=== PATIENT | female | born 1940 | race Two or more races ===

== ENCOUNTER 2024-08-21 19:19 | Emergency (ER) | payer MEDICARE, OTHER, SELFPAY ==
[2024-08-21 19:20] VITALS: BMI 20.7
[2024-08-21 19:50] VITALS: BP 155/79; PULSE 82; RESP 16; TEMP 37.5; O2SAT 96
--- NOTE | 2024-08-21 20:06 | XR_ITS ---
Examination: AP chest single view Technique: AP upright portable chest single view Exam date and time: August 21, 2024 2012 hrs. Comparison November 29, 2018 Indications: Patient fell today with weakness Findings: Mild prominence cardiac contour Moderate vascular congestion Suspicious for septal edema perihilar left lung bases No lobar pneumonia Impression: Suspicious for early heart failure
--- NOTE | 2024-08-21 20:06 | XR_ITS ---
Examination: CT brain head without contrast. 2-D sagittal coronal reconstructions Date and time of exam:August 21, 20242012 hrs. Indications: Onset weakness today head pain headache CTDI: vol (mGy):44.8 DLP: (mGycm):918 Technique: Multiple CT axial sections of the brain have been obtained, 5 mm slice thickness. Contrast has not been administered. 2-D sagittal, coronal reconstructions have been obtained Low dose protocols were performed. One or more of the following dose reduction techniques were used; automated exposure control, adjustment of the mA and/or KV according to patient size, use of iterative reconstruction technique. Findings: No significant ventricular enlargement. Intra-axial or extra-axial hemorrhage density is not seen. No mass effect or midline shift Basal cisterns are not remarkable. Fourth ventricle is midline. Cranial vault intact. Impression: Negative for acute hemorrhage, mass effect or midline shift
--- NOTE | 2024-08-21 20:06 | XR_ITS ---
Examination: CT cervical spine without contrast 2-D sagittal reconstructions 2-D coronal reconstructions 3-D reconstructions. Exam date and time:August 21, 20242012 hrs. CTDI:vol (mGy) 7.17 DLP: (mGycm) 155 Technique: Multiple 2 mm axial sections of the cervical spine have been obtained. The coronal and sagittal reconstructions have been obtained. 3-D reconstructions have been obtained. Low dose protocols were performed. One or more of the following dose reduction techniques were used; automated exposure control, adjustment of the mA and/or KV according to patient size, use of iterative reconstruction technique. Findings: Axial sections demonstrate intact base of the skull. C1 exhibit satisfactory relationship to the odontoid. No acute cervical vertebral body fracture seen. Alignment posterior spinous processes satisfactory. Impression: No acute cervical fracture.
--- NOTE | 2024-08-21 20:07 | EDRME_ITS ---
Rapid Medical Screening Exam [facility] Arrival date/time: 08/21/24 19:19 83F with history of dementia presents to ED with son for increased generalized weakness and 3 unwitnessed falls (possibly due to imbalance). Son thinks symptoms started last night. Chief Complaint: Fall Time Seen by Provider: 08/21/24 19:49 Vital signs: Vital Signs Temperature 99.5 F 08/21/24 19:50 Pulse Rate 82 08/21/24 19:50 Respiratory Rate 16 08/21/24 19:50 Blood Pressure 155/79 H 08/21/24 19:50 Pulse Oximetry (%) 96 08/21/24 19:50 Oxygen Delivery Method Room Air 08/21/24 19:50
[2024-08-21 20:44] LABS: Basophils % (Auto) 0 % (0-2.5); Eosinophils % (Auto) 0 % (0-10); Hematocrit 37.7 % (36.0-46.0); Hemoglobin 12.4 g/dL (12.0-16.0); Immature Granulocytes % (Auto) 0 % (0-0); Immature Granulocytes Auto 0.05 Thou/mm3 (0.00-0.00); Lymphocytes % (Auto) 8 % (10-50); Mean Corpuscular HGB Conc 32.9 g/dl (31.0-37.0); Mean Corpuscular Hemoglobin 29.9 pg (25.0-35.0); Mean Corpuscular Volume 91 fL (80-100); Monocytes # (Auto) 0.9 Thou/mm3 (0.0-0.8); Monocytes % (Auto) 8 % (0-12); Neutrophils # (Auto) 9.9 Thou/mm3 (1.8-7.7); Neutrophils % (Auto) 83 % (37-80); Nucleated Red Blood Cell % 0 /100 WBC (0); Platelet Count 236 Thou/mm3 (140-440); RDW Standard Deviation 42.2 fL (36.4-46.3); Red Blood Count 4.15 Miln/mm3 (4.00-5.20); White Blood Count 11.8 Thou/mm3 (3.6-11.0)
[2024-08-21 21:11] LABS: Alanine Aminotransferase 13 U/L (10-49); Albumin, Serum 5.1 gm/dL (3.4-4.8); Albumin/Globulin Ratio 1.7 (1.2-2.2); Alkaline Phosphatase 138 U/L (46-116); Anion Gap 10 (7-16); Aspartate Amino Transferase 28 U/L (0-34); BUN/Creatinine Ratio 16 Ratio (12-20); Bilirubin,Total 0.7 mg/dL (0.3-1.2); Blood Urea Nitrogen 13 mg/dL (9-23); Calcium 9.6 mg/dL (8.3-10.6); Calcium (Corrected) 9.6 mg/dL (8.5-10.1); Carbon Dioxide 25.9 mMol/L (20.0-31.0); Chloride 102 mMol/L (98-107); Creatine Kinase 443 U/L (34-171); Creatinine (Component) 0.8 mg/dL (0.6-1.3); Estimated Creatinine Clearance 47.7 mL/min (>60); Glucose 123 mg/dL (74-106); Osmolality,Calculated 276 (275-295); Potassium 3.3 mMol/L (3.4-5.1); Sodium 138 mMol/L (136-145); Total Protein 8.1 gm/dL (5.7-8.2); eGFR > 60 See Note
[2024-08-21 21:16] LABS: Collection Type, Urine Clean Catch
[2024-08-21 21:24] LABS: Troponin I < 0.020 ng/mL (0.0-0.045)
[2024-08-21 21:25] LABS: Bacteria,Urine 2+; Bilirubin,Urine Negative (Negative); Blood,Urine 2+ (Negative); Clarity,Urine Turbid (Clear/Hazy); Color,Urine Yellow (Lt Yel-Yel); Glucose, Urine Negative (Negative); Ketones,Urine 1+ (Negative); Leukocyte Esterase,Urine Positive (Negative); Nitrite,Urine Positive (Negative); Protein,Urine 1+ (Neg - Trace); RBC,Urine 22 /hpf (0-3); Specific Gravity,Urine 1.017 (1.001-1.035); Squamous Epithelial Cell,Urine 9 /hpf (0-5); Urobilinogen,Urine Negative mg/dL (0.0-1.0); WBC,Urine 707 /hpf (0-5)
[2024-08-21 21:26] LABS: Partial Thromboplastin Time 28.3 Seconds (22.0-36.0); Prothrombin Time 11.4 Seconds (9.0-12.2)
[2024-08-21 21:27] LABS: Culture Indicated,Urine Yes
--- NOTE | 2024-08-21 22:35 | PD.EDFALL ---
ED Fall Injury RME/HPI General Chief Complaint: Fall Stated Complaint: GENREAL WEAKNESS AND FALLS Time Seen by Provider: 08/21/24 19:49 Arrival date/time: 08/21/24 19:19 RME / HPI RME / HPI Narrative: 83-year-old female patient with significant history of dementia, was brought in by his son who is visiting from [place], came in for evaluation regarding possible unwitnessed fall due to imbalance at least 3 times for several days now. Currently patient is denying any complaints. Denies any fever. Denies any dysuria denies any chest pain, back pain, neck pain. Related Data Home Medications ?Medication ?Instructions ?Recorded ?Confirmed atorvastatin 10 mg tablet (Lipitor) 10 mg PO QDAY 11/29/18 11/29/18 donepezil 5 mg tablet (Aricept) 5 mg PO QDAY 11/29/18 11/29/18 fexofenadine 180 mg tablet 180 mg PO Q24H 11/29/18 11/29/18 (Yanet Allergy) gabapentin 100 mg capsule 100 mg PO QDAY 11/29/18 11/29/18 montelukast 10 mg tablet 10 mg PO QPM 11/29/18 11/29/18 (Singulair) [id number] 8 mg-folic 400 1 tab PO QDAY 11/29/18 11/29/18 mcg-K 50 mcg-lutein 300 mcg tablet (Centrum Silver Women) ropinirole 1 mg tablet (Requip) 1 mg PO BID 11/29/18 11/29/18 Previous Rx's ?Medication ?Instructions ?Recorded cefuroxime axetil 500 mg tablet 500 mg PO BID #14 tabs 08/21/24 Allergies Allergy/AdvReac Type Severity Reaction Status Date / Time codeine Allergy Unknown Verified 12/02/18 08:51 Review of Systems Review of Systems Narrative Review of Systems: Review of system reviewed and within normal limits except mentioned in HPI ED Exam Narrative Physical exam: VITAL SIGNS: Reviewed. GENERAL APPEARANCE: Alert and interactive, follows commands, no acute distress, HEAD AND FACE: Non-traumatic. ENT: PERRL, pink conjunctivitis, eyelid no trauma, Mucous membrane moist. NECK: Supple, nontender, no nuchal rigidity. CHEST: No tenderness, no crepitus, no paradoxical movement, no retractions. LUNGS: Clear, well ventilated, symmetric, no rales, no wheezing, no ronchi, no stridor, good breath sounds bilaterally. HEART: Regular rate, regular rhythm, no murmur, no gallops. ABDOMEN: Soft, positive bowel sounds, nondistended, no guarding, nontender, no rebound, no masses, RECTAL: Deferred. GENITAL: Deferred. NEUROLOGICAL: Gross motor function intact sensory function intact, Appropriate for age. MUSCULOSKELETAL: low back nontender, full range of motion. EXTREMITIES: Nontender, full range of motion. SKIN: Color pink, dry, no rash, no lacerations, no abrasions, no contusions. LYMPHATICS: Deferred. Course Quality Measures none Orders Category Date Time Status Blood glucose [Bedside Blood Glucose] NOW Care 08/21/24 19:41 Completed EKG (ED ONLY) *Do not use* NOW Care 08/21/24 19:[address] cervical spine wo con Stat Exams 08/21/24 20:[address] head/brain wo con Stat Exams 08/21/24 20:06 Completed EKG (ED Only) Stat Exams 08/21/24 19:41 Ordered XR chest 1V portable Stat Exams 08/21/24 20:06 Completed CBC Stat Lab 08/21/24 20:30 Completed Comprehensive Metabolic Panel Stat Lab 08/21/24 20:30 Completed Creatine Kinase Stat Lab 08/21/24 20:30 Completed Partial Thromboplastin Time Stat Lab 08/21/24 20:30 Completed Prothrombin Time with INR Stat Lab 08/21/24 20:30 Completed Troponin I Stat Lab 08/21/24 20:30 Completed Urinalysis, C/S if Indicated Stat Lab 08/21/24 21:08 Completed Urine Culture Stat Lab 08/21/24 21:08 Received cefTRIAXone [Rocephin] 1,000 mg Med 08/21/24 22:31 Discontinued Lidocaine 1% 20 ml [Xylocaine 1% 20 ML] 2.1 ml IM X1 Vital Signs Vital signs: Vital Signs Temperature 99.5 F 08/21/24 19:50 Pulse Rate 82 08/21/24 19:50 Respiratory Rate 16 08/21/24 19:50 Blood Pressure 155/79 H 08/21/24 19:50 Pulse Oximetry (%) 96 08/21/24 19:50 Oxygen Delivery Method Room Air 08/21/24 19:50 Fall MDM Narrative MDM Narrative:: 83-year-old female patient with significant history of dementia, was brought in by his son who is visiting from [place], came in for evaluation regarding possible unwitnessed fall due to imbalance at least 3 times for several days now. Currently patient is denying any complaints. Denies any fever. Denies any dysuria denies any chest pain, back pain, neck pain. Laboratory workup significant for UTI CT scan of the head came back unremarkable. CT scan of the neck came back unremarkable. Results discussed with the patient and her son. Patient was given ceftriaxone IM. Patient data External records reviewed:: None Clinical information provided by:: none Social determinants that could affect healthcare access:: none Patient has the following chronic illnesses:: Dementia How is presenting disease/condition affected by chronic disease/condition?: exacerbated by Evaluation data The following diagnostics were reviewed and interpreted by me:: lab results and radiology exam(s) Lab and/or radiology exams considered but not ordered:: None Interpretation Summary: Laboratory workup significant for UTI. CT scan of the head came back unremarkable CT scan of the neck came back unremarkable. Medications / Prescriptions Medications or Prescriptions considered but not ordered:: None Medication administrations:: Medication Administration History Discontinued Medications Ceftriaxone Sodium 1,000 mg/ (Lidocaine HCl 2.1 ml) 0 mg IM X1 ONE Stop: 08/21/24 22:32 Ceftriaxone IM Consultations Consultation(s) initiated? (list below): No Diagnosis Fall Differential Diagnosis: other (UTI, frequent falls, dementia) Most likely diagnosis given after review of the tests above:: UTI, frequent falls Admission Indicated Admission indicated?: not indicated Explain why admission is indicated or not indicated:: Stable Admission Request Was there a request for admission?: No Disposition Plan Disposition Plan: Discharge Discharge Attestation Discharge Attestation: The patient and all family members were given an opportunity to ask questions and understood the discharge instructions. Discharge instructions specifically effects, indications for sooner follow up or return to the emergency department, and the expected course of current diagnosis. Patient condition: Stable Discharge Plan Plan Patient Disposition: HOME (Self Care) Disposition Comment: Stable Prescriptions/Referrals Prescriptions/Med Rec: New cefuroxime axetil 500 mg tablet 500 mg PO BID Qty: 14 0RF No Action ropinirole [Requip] 1 mg Tablet 1 mg PO BID donepezil [Aricept] 5 mg Tablet 5 mg PO QDAY atorvastatin [Lipitor] 10 mg Tablet 10 mg PO QDAY fexofenadine [Yanet Allergy] 180 mg Tablet 180 mg PO Q24H montelukast [Singulair] 10 mg Tablet 10 mg PO QPM gabapentin 100 mg Capsule 100 mg PO QDAY Centrum Silver Women 8 mg iron-400 mcg-300 mcg Tablet 1 tab PO QDAY Referrals: Temporary Provider,ED [Primary Care Provider] - In 1 week Problem List Clinical Impression: UTI (urinary tract infection), Fall Patient/Caregiver Discharge Instructions Discharge Activity: activity as tolerated Education Materials: Understanding Urinary Tract ... Additional Instructions: Thank you for the opportunity for serving you today. You are stable for discharged . 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 FERRO
[2024-08-21] MEDS: cefTRIAXone 1,000 MG, LIDOCAINE 1% 20 ML 2.1 ML IM (22:53)
== END 2024-08-21 23:04 | disposition home or self-care (01) ==
PROVIDERS: Physician Assistant; Emergency Provider Emergency Medicine
DX: N39.0 Urinary tract infection, site not specified (principal); R53.1 Weakness; R51.9 Headache, unspecified; F03.90 Unspecified dementia, unspecified severity, without behavioral disturbance, psychotic disturbance, mood disturbance, and anxiety; R94.31 Abnormal electrocardiogram [ECG] [EKG]; W19.XXXA Unspecified fall, initial encounter
CPT/HCPCS: 36415; 70450; 71045; 72125; 80053; 81001; 82550; 84484; 85025; 85610; 85730; 87077; 87086; 87186; 93005; 96372; 99284; J0696; J3490

== ENCOUNTER 2024-10-20 13:09 | Emergency (ER) | payer MEDICARE, OTHER, SELFPAY ==
[2024-10-20 13:16] VITALS: PULSE 62; RESP 16; O2SAT 98
--- NOTE | 2024-10-20 13:17 | EKG_ITS ---
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
--- NOTE | 2024-10-20 13:17 | XR_ITS ---
Examination: AP chest single view TECHNIQUE: AP portable sitting chest single view Exam date and time: October 20, 2024 1444 hours INDICATIONS: Shortness of breath today. FINDINGS: Normal heart size Mild vascular congestion No lobar pneumonia Prominent osteopenia IMPRESSION: Mild vascular congestion
[2024-10-20 13:19] VITALS: BP 200/83; PULSE 59; RESP 15; TEMP 36.4; O2SAT 98
--- NOTE | 2024-10-20 13:30 | EDNOTE_ITS ---
Nausea/Vomit./Diarrhea-RME/HPI General Chief complaint: Nausea/Vomiting/Diarrhea Stated complaint: N/V Time Seen by Provider: 10/20/24 13:14 Arrival date/time: 10/20/24 13:09 RME / HPI RME / HPI Narrative: This section includes all my notes and documentations, including HPI, PE, and ED course.? 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 Per medics, patient had two episodes, nonbloody, witnessed by them. Was given 4mg PO Zofran with no subsequent episodes. Medics reports blood pressure was 168/92 and all other vitals stable. While in the ED patient has no other complaints. ROS: All negative except as documented in HPI. Physical Exam: General:? Alert and oriented X 1.? No acute distress when remaining still.?? Eyes:? Conjunctivae and lids clear.? ENT:? No nasal congestion.? Neck:? Supple.? Heart:? RRR.? Lungs:? No respiratory distress.? Good air movement.? No rhonchi, wheezing, rales.?? Abdomen:? Soft and nontender.?? Legs:? No clubbing, cyanosis, edema.? Skin:? Warm and dry.?? Neuro:? Alert, awake.?? I reviewed all diagnostic test results. My interpretation of the EKG is?sinus rhythm (65 bpm) with PACs and nonspecific ST-T changes. My interpretation of the chest x-ray is no acute findings. Blood tests and urine tests?unremarkable, except K 3.2. At this point, diagnoses include?gastroenteritis. Treatment here included Zofran and IV fluid and Reglan and KCl. Significant improvement noted. Recommended supportive care. Based on my best medical judgment, made decision no further evaluation or treatment indicated at this time.? POSu understands and agrees to the discharge instructions customized and printed, see below. Discharge Instructions from Dr. Smart: 1. After evaluation, you have stomach flu.? See attached handout on gastroenteritis. 2. This is caused by virus germs.? And we do not have good medications to kill the virus germs.? But your immune system will fight it off. 3. Your job is to stay hydrated.? Zofran for nausea/vomiting.? Increase oral fluid and maintain clear urine.? If dark or yellow, increase oral fluid. 4. Do not take any medications to stop your diarrhea.? But try to replenish the fluid and electrolytes you are losing. 5. Some good choices are water (but not only water because it will cause electrolyte abnormalities), sports drinks like Gatorade (with less sugar content), coconut water, chicken stock, and other fluid with electrolytes (like Pedialyte). 6. See your private doctor on 10/23/2024 if not completely better. 7. Seek immediate medical care with worsening or with any concerns. Abe Smart MD Related Data Home Medications ?Medication ?Instructions ?Recorded ?Confirmed atorvastatin 10 mg tablet (Lipitor) 10 mg PO QDAY 11/29/18 11/29/18 donepezil 5 mg tablet (Aricept) 5 mg PO QDAY 11/29/18 11/29/18 fexofenadine 180 mg tablet 180 mg PO Q24H 11/29/18 11/29/18 (Yanet Allergy) gabapentin 100 mg capsule 100 mg PO QDAY 11/29/18 11/29/18 montelukast 10 mg tablet 10 mg PO QPM 11/29/18 11/29/18 (Singulair) [id number] 8 mg-folic 400 1 tab PO QDAY 11/29/18 11/29/18 mcg-K 50 mcg-lutein 300 mcg tablet (Centrum Silver Women) ropinirole 1 mg tablet (Requip) 1 mg PO BID 11/29/18 11/29/18 Previous Rx's ?Medication ?Instructions ?Recorded cefuroxime axetil 500 mg tablet 500 mg PO BID #14 tabs 08/21/24 ondansetron 4 mg disintegrating 4 mg PO TID PRN nausea and 10/20/24 tablet vomiting 5 days #10 tabs Allergies Allergy/AdvReac Type Severity Reaction Status Date / Time codeine Allergy Unknown Verified 12/02/18 08:51 Review of Systems Review of Systems Systems Reviewed: All systems reviewed, normal except as documented Past Medical History Past Medical History CARDIAC: Positive Cardiac Disorders and Hypercholesterolemia (TAKES MED) REPRODUCTIVE: Positive Previous Pregnancies (X4) OTHER HISTORY: Positive Mumps Family History FAMILY HISTORY: Positive Family Cardiac Disorders (BROTHER (HEART TRANSPLANT)) Social History SMOKING STATUS: Never smoker ED Exam Narrative Physical exam: As noted in HPI Course Quality Measures none Orders Category Date Time Status Bedside COVID-19 Antigen Test NOW Care 10/20/24 13:17 Active Bedside Influenza A&B Antigen Test NOW Care 10/20/24 13:17 Completed EKG (ED ONLY) *Do not use* NOW Care 10/20/24 13:17 Completed EKG (ED Only) Stat Exams 10/20/24 13:17 Draft XR chest 1V portable Stat Exams 10/20/24 13:17 Completed Amylase Stat Lab 10/20/24 13:28 Completed CBC Stat Lab 10/20/24 13:28 Completed CMP [Comprehensive Metabolic Panel] Stat Lab 10/20/24 13:28 Completed Lipase Stat Lab 10/20/24 13:28 Completed Magnesium Stat Lab 10/20/24 13:28 Completed Troponin I Stat Lab 10/20/24 13:28 Completed UA, C/S IF [Urinalysis, C/S if Indicated] Stat Lab 10/20/24 12:58 Completed KCL 10% Liq UDC 15 ML Med 10/20/24 14:24 Discontinued 40 meq PO X1 ONE Metoclopramide Inj [Reglan Inj] Med 10/20/24 13:16 Discontinued 10 mg IVP X1 ONE Sodium Chloride 0.9% 1000 ml [Ns] 1,000 ml Med 10/20/24 13:16 Discontinued IV 999 mls/hr Vital Signs Vital signs: Vital Signs Temperature 97.5 F 10/20/24 13:19 Pulse Rate 59 L 10/20/24 13:19 Respiratory Rate 15 10/20/24 13:19 Blood Pressure 200/83 H 10/20/24 13:19 Pulse Oximetry (%) 98 10/20/24 13:19 Oxygen Delivery Method Room Air 10/20/24 13:19 Pulse ox is 98% on room air which is adequate. Nausea/Vomiting/Diarrhea MDM Narrative MDM Narrative:: Lissy Jacobs am scribing for and in the presence of Dr. Smart. Patient data External records reviewed:: [facility] previous records (I reviewed ED visit on 08/21/2024) and EMS form Clinical information provided by:: patient and EMS Social determinants that could affect healthcare access:: none Patient has the following chronic illnesses:: dementia, hyperlipidemia How is presenting disease/condition affected by chronic disease/condition?: uneffected by Evaluation data The following diagnostics were reviewed and interpreted by me:: lab results, radiology exam(s) and EKG tracing(s) (My interpretation of the EKG is: Sinus rhythm (65 bpm) with PACs and nonspecific ST-T changes. Abe Smart MD) Lab and/or radiology exams considered but not ordered:: None Interpretation Summary: Gastroenteritis Medications / Prescriptions Medications / Prescriptions considered but not ordered:: None Medication administrations:: Medication Administration History Discontinued Medications Sodium Chloride (Ns) 1,000 mls @ 999 mls/hr IV .Q1H1M ONE Stop: 10/20/24 14:16 Last Admin: 10/20/24 14:32 Dose: 999 mls/hr Documented By: SUKHI Metoclopramide HCl (Metoclopramide Inj 5 Mg/Ml Vial 2 Ml) 10 mg IVP X1 ONE; Protocol Stop: 10/20/24 13:17 Last Admin: 10/20/24 14:31 Dose: 10 mg Documented By: SUKHI Potassium Chloride (Potassium Chloride 10% 20 Meq/15 Ml Udc) 40 meq PO X1 ONE Stop: 10/20/24 14:25 Last Admin: 10/20/24 15:25 Dose: 40 meq Documented By: SUKHI Patient given IV fluids, reglan, and potassium Consultations Consultation(s) initiated? (list below): No Diagnosis Nausea Differential Diagnosis: traveler's diarrhea, food poisoning, gastroenteritis, drug-induced nausea and vomiting and dehydration Most likely diagnosis given after review of the tests above:: Gastroenteritis Admission Indicated Admission indicated?: not indicated Explain why admission is indicated or not indicated:: Admission criteria not met Admission Request Was there a request for admission?: No Disposition Plan Disposition Plan: Discharge Discharge Attestation Discharge Attestation: The patient and all family members were given an opportunity to ask questions and understood the discharge instructions. Discharge instructions specifically effects, indications for sooner follow up or return to the emergency department, and the expected course of current diagnosis. Patient condition: Stable Discharge Plan Plan Patient Disposition: HOME (Self Care) Prescriptions/Referrals Prescriptions/Med Rec: New ondansetron 4 mg tablet,disintegrating 4 mg PO TID PRN (Reason: nausea and vomiting) 5 Days Qty: 10 0RF No Action ropinirole [Requip] 1 mg Tablet 1 mg PO BID donepezil [Aricept] 5 mg Tablet 5 mg PO QDAY atorvastatin [Lipitor] 10 mg Tablet 10 mg PO QDAY fexofenadine [Yanet Allergy] 180 mg Tablet 180 mg PO Q24H montelukast [Singulair] 10 mg Tablet 10 mg PO QPM gabapentin 100 mg Capsule 100 mg PO QDAY Centrum Silver Women 8 mg iron-400 mcg-300 mcg Tablet 1 tab PO QDAY cefuroxime axetil 500 mg tablet 500 mg PO BID Qty: 14 0RF Referrals: No Primary/Family,Physician [Primary Care Provider] - In 1 week Problem List Clinical Impression: Stomach flu Patient/Caregiver Discharge Instructions Education Materials: ED Gastroenteritis, Viral (Adult) Additional Instructions: Discharge Instructions from Dr. Smart: 1. After evaluation, you have stomach flu.? See attached handout on g astroenteritis. 2. This is caused by virus germs.? And we do not have good medications to kill the virus germs.? But your immune system will fight it off. 3. Your job is to stay hydrated.? Zofran for nausea/vomiting.? Increase oral fluid and maintain clear urine.? If dark or yellow, increase oral fluid. 4. Do not take any medications to stop your diarrhea.? But try to replenish the fluid and electrolytes you are losing. 5. Some good choices are water (but not only water because it will cause electrolyte abnormalities), sports drinks like Gatorade (with less sugar content), coconut water, chicken stock, and other fluid with electrolytes (like Pedialyte). 6. See your private doctor on 10/23/2024 if not completely better. 7. Seek immediate medical care with worsening or with any concerns. Print Language: Guinean Stand Alone Forms: Shannon Award Info., Patient Portal Info Letter
[2024-10-20 13:45] LABS: Basophils % (Auto) 0 % (0-2.5); Eosinophils # (Auto) 0.1 Thou/mm3 (0.0-0.5); Eosinophils % (Auto) 1 % (0-10); Hematocrit 34.8 % (36.0-46.0); Hemoglobin 11.6 g/dL (12.0-16.0); Immature Granulocytes % (Auto) 0 % (0-0); Immature Granulocytes Auto 0.02 Thou/mm3 (0.00-0.00); Lymphocytes # (Auto) 1.7 Thou/mm3 (1.0-4.8); Lymphocytes % (Auto) 17 % (10-50); Mean Corpuscular HGB Conc 33.3 g/dl (31.0-37.0); Mean Corpuscular Hemoglobin 29.7 pg (25.0-35.0); Mean Corpuscular Volume 89 fL (80-100); Monocytes # (Auto) 0.5 Thou/mm3 (0.0-0.8); Monocytes % (Auto) 5 % (0-12); Neutrophils % (Auto) 78 % (37-80); Nucleated Red Blood Cell % 0 /100 WBC (0); Platelet Count 269 Thou/mm3 (140-440); Red Blood Count 3.91 Miln/mm3 (4.00-5.20); White Blood Count 10.3 Thou/mm3 (3.6-11.0)
[2024-10-20 14:08] LABS: Alanine Aminotransferase 12 U/L (10-49); Albumin, Serum 4.4 gm/dL (3.4-4.8); Albumin/Globulin Ratio 1.5 (1.2-2.2); Alkaline Phosphatase 179 U/L (46-116); Amylase 69 U/L (30-118); Anion Gap 10 (7-16); Aspartate Amino Transferase 16 U/L (0-34); BUN/Creatinine Ratio 23 Ratio (12-20); Bilirubin,Total 0.3 mg/dL (0.3-1.2); Blood Urea Nitrogen 16 mg/dL (9-23); Carbon Dioxide 25.3 mMol/L (20.0-31.0); Chloride 105 mMol/L (98-107); Creatinine (Component) 0.7 mg/dL (0.6-1.3); Globulin 2.9 gm/dL (2.3-3.5); Glucose 142 mg/dL (74-106); Lipase 32 U/L (12-53); Magnesium 1.9 mg/dL (1.6-2.6); Osmolality,Calculated 282 (275-295); Potassium 3.2 mMol/L (3.4-5.1); Sodium 140 mMol/L (136-145); Total Protein 7.3 gm/dL (5.7-8.2); Troponin I < 0.020 ng/mL (0.0-0.045); eGFR > 60 See Note
[2024-10-20 14:09] VITALS: BMI 21.7
[2024-10-20] MEDS: METOCLOPRAMIDE INJ 5 MG/ML VIAL 2 ML 10 MG IVP (14:31)
[2024-10-20] MEDS: SODIUM CHLORIDE 0.9% 1000 ML 1,000 ML 999 ML IV (14:32)
[2024-10-20 14:53] VITALS: BP 178/88; PULSE 72; RESP 20; O2SAT 98
[2024-10-20] MEDS: POTASSIUM CHLORIDE 10% 20 MEQ/15 ML UDC 40 MEQ PO (15:25)
[2024-10-20 15:42] LABS: Collection Type, Urine Clean Catch; Squamous Epithelial Cell,Urine 0 /hpf (0-5)
[2024-10-20 16:00] LABS: Bilirubin,Urine Negative (Negative); Blood,Urine Negative (Negative); Clarity,Urine Clear (Clear/Hazy); Color,Urine Lt-Yellow (Lt Yel-Yel); Culture Indicated,Urine Not Indicated; Glucose, Urine Negative (Negative); Hyaline Casts,Urine < 1 /hpf (0-1); Ketones,Urine Negative (Negative); Leukocyte Esterase,Urine Negative (Negative); Nitrite,Urine Negative (Negative); Protein,Urine Negative (Neg - Trace); RBC,Urine 1 /hpf (0-3); Specific Gravity,Urine 1.016 (1.001-1.035); Urobilinogen,Urine Negative mg/dL (0.0-1.0); WBC,Urine 2 /hpf (0-5)
[2024-10-20 16:50] VITALS: BP 132/81; PULSE 98; RESP 17; TEMP 36.8; O2SAT 98
== END 2024-10-20 18:10 | disposition home or self-care (01) ==
PROVIDERS: Emergency Provider Emergency Medicine
DX: A08.4 Viral intestinal infection, unspecified (principal); R06.02 Shortness of breath; I49.1 Atrial premature depolarization; E78.00 Pure hypercholesterolemia, unspecified
CPT/HCPCS: 36415; 71045; 80053; 81001; 82150; 83690; 83735; 84484; 85025; 87400; 87811; 93005; 96361; 96374; 99284; J2765; J7030; A9270

== ENCOUNTER → 2025-03-04 | Outpatient (CLI) | payer MEDICARE, OTHER, SELFPAY ==
[2025-03-04 14:19] LABS: Collection Type, Urine Clean Catch
[2025-03-04 15:11] LABS: Bilirubin,Urine Negative (Negative); Blood,Urine Negative (Negative); Clarity,Urine Clear (Clear/Hazy); Color,Urine Yellow (Lt Yel-Yel); Glucose, Urine Negative (Negative); Ketones,Urine Trace (Negative); Leukocyte Esterase,Urine Positive (Negative); Nitrite,Urine Negative (Negative); PH,Urine 6.5 (5.0-7.0); Protein,Urine Trace (Neg - Trace); RBC,Urine 5 /hpf (0-3); Specific Gravity,Urine 1.028 (1.001-1.035); Squamous Epithelial Cell,Urine 2 /hpf (0-5); Urobilinogen,Urine Negative mg/dL (0.0-1.0); WBC,Urine 4 /hpf (0-5)
== END | disposition home or self-care (01) ==
LOC: SLDO 14:12
PROVIDERS: PCP Family Medicine; Referring Provider Family Medicine; Visit Provider Family Medicine
DX: N30.00 Acute cystitis without hematuria (principal)
CPT/HCPCS: 81001; 87086

== ENCOUNTER → 2025-03-05 | Outpatient (CLI) | payer MEDICARE, OTHER, SELFPAY ==
[2025-03-05 16:21] LABS: Basophils # (Auto) 0.1 Thou/mm3 (0.0-0.2); Basophils % (Auto) 1 % (0-2.5); Eosinophils # (Auto) 0.1 Thou/mm3 (0.0-0.5); Eosinophils % (Auto) 1 % (0-10); Hematocrit 36.5 % (36.0-46.0); Hemoglobin 12.3 g/dL (12.0-16.0); Immature Granulocytes % (Auto) 0 % (0-0); Immature Granulocytes Auto 0.01 Thou/mm3 (0.00-0.00); Lymphocytes # (Auto) 1.4 Thou/mm3 (1.0-4.8); Lymphocytes % (Auto) 18 % (10-50); Mean Corpuscular HGB Conc 33.7 g/dl (31.0-37.0); Mean Corpuscular Hemoglobin 29.4 pg (25.0-35.0); Mean Corpuscular Volume 87 fL (80-100); Monocytes # (Auto) 0.6 Thou/mm3 (0.0-0.8); Monocytes % (Auto) 8 % (0-12); Neutrophils # (Auto) 5.8 Thou/mm3 (1.8-7.7); Neutrophils % (Auto) 73 % (37-80); Nucleated Red Blood Cell % 0 /100 WBC (0); Platelet Count 309 Thou/mm3 (140-440); RDW Standard Deviation 45.3 fL (36.4-46.3); Red Blood Count 4.19 Miln/mm3 (4.00-5.20)
[2025-03-05 16:49] LABS: Alanine Aminotransferase 13 U/L (10-49); Albumin, Serum 4.4 gm/dL (3.4-4.8); Albumin/Globulin Ratio 1.6 (1.2-2.2); Alkaline Phosphatase 115 U/L (46-116); Anion Gap 8 (7-16); Aspartate Amino Transferase 22 U/L (0-34); BUN/Creatinine Ratio 25 Ratio (12-20); Bilirubin,Total 0.4 mg/dL (0.3-1.2); Blood Urea Nitrogen 20 mg/dL (9-23); Calcium 9.2 mg/dL (8.3-10.6); Calcium (Corrected) 9.2 mg/dL (8.5-10.1); Carbon Dioxide 27.7 mMol/L (20.0-31.0); Chloride 106 mMol/L (98-107); Creatinine (Component) 0.8 mg/dL (0.6-1.3); Globulin 2.8 gm/dL (2.3-3.5); Glucose 91 mg/dL (74-106); Osmolality,Calculated 285 (275-295); Potassium 3.9 mMol/L (3.4-5.1); Sodium 142 mMol/L (136-145); Thyroid Stimulating Hormone 5.11 uIU/mL (0.55-4.78); Total Protein 7.2 gm/dL (5.7-8.2); eGFR > 60 See Note
[2025-03-05 16:55] LABS: Vitamin B12 256 pg/mL (211-911)
== END | disposition home or self-care (01) ==
LOC: COPL 14:55
PROVIDERS: PCP Family Medicine; Referring Provider Family Medicine; Visit Provider Family Medicine
DX: R53.83 Other fatigue (principal)
CPT/HCPCS: 36415; 80053; 82607; 84443; 85025